=== PATIENT | female | born 1995 | race Caucasian/White ===

== ENCOUNTER 2024-08-25 15:58 | Observation (INO) | payer OTHER, SELFPAY ==
[2024-08-25] VITALS (32 sets, daily range): BP systolic 110–133; BP diastolic 48–64; PULSE 68–101; O2SAT 95–100; BMI 26.5
[2024-08-25] MEDS: DEXTROSE 5%/LACTATED RINGERS 1,000 ML 999 ML IV CONT (16:35)
--- NOTE | 2024-08-25 20:16 | PC.NURSE ---
[facility] RN Maribel with transport team here and assumed care at this time.
--- NOTE | 2024-08-26 05:33 | PM.DS ---
DS: Admitting Diagnosis Discharge Date 08/25/2024 Admitting Diagnosis twin with twin-twin transfusion DS: Discharge Diagnosis Discharge Diagnosis (1) Twin : Code(s): O30.009 - Twin , unspecified number of placenta and unspecified number of amniotic sacs, unspecified trimester Status: Acute (2) Twin to twin transfusion: Code(s): O43.029 - Zkjhn-xw-onvgs placental transfusion syndrome, unspecified trimester Status: Acute DS: Summary Hospital Course Reason for hospitalization: patient was admitted for observation at 34 weeks after noting severe bfdv-la-jpka transfusion. Hospital Course: Patient was given 1 dose of steroid. Discussion was made with [facility] at [facility] who agreed to take the patient. Time Spent with Patient Time attestation: Total time spent providing and/or coordinating discharge services: Exam Const: General: cooperative, healthy appearing and comfortable Nutritional Appearance: average body habitus Orientation/consciousness: oriented to person, oriented to place and oriented to time Resp: Effort & Inspection: normal respiratory effort Cardio: Rate: regular rate Rhythm: regular rhythm Heart sounds: S1 normal heart sound present and S2 normal heart sound present GI: Inspection: normal to inspection ( Gravid soft uterus) Discharge Plan Discharge Attending physician on discharge: Vicente Linares Discharging Clinician: Vicente Linares Activity: pelvic rest Diet: heart healthy Patient Language: Danish Follow-up/Referrals: Vicente Linares MD [Physician] - Date of admission: 08/25/24 15:58 Primary Care Provider: UNKNOWN,DOCTOR Admitting Provider: Vicente Linares Attending physician on admission: Vicente Linares Condition: Guarded Prognosis
== END 2024-08-25 20:30 | disposition short-term general hospital (02) ==
PROVIDERS: Admitting Provider Obstetrics & Gynecology; Visit Provider Obstetrics & Gynecology
DX: O30.033 Twin pregnancy, monochorionic/diamniotic, third trimester (principal); O43.023 Fetus-to-fetus placental transfusion syndrome, third trimester; Z3A.34 34 weeks gestation of pregnancy
CPT/HCPCS: G0378; G0379; J7121